=== PATIENT | male | born 1975 | race African-American/Black ===

== ENCOUNTER 2018-06-27 22:29 | Emergency (ER) | payer BC ==
[2018-06-27] MEDS ORDERED: Adacel (T-DAP) 0.5 ML SYRINGE ONE (23:08)
== END 2018-06-28 00:12 | disposition home or self-care (01) ==
LOC: BURERS 22:29
DX: S61.215A Laceration without foreign body of left ring finger without damage to nail, initial encounter (principal); S61.214A Laceration without foreign body of right ring finger without damage to nail, initial encounter; Z23 Encounter for immunization; W26.0XXA Contact with knife, initial encounter
CPT/HCPCS: 12002; 90471; 90715